=== PATIENT | male | born 1985 | race Two or more races ===

== ENCOUNTER → 2024-11-08 | Outpatient (CLI) | payer MEDICAID, SELFPAY ==
--- NOTE | 2024-11-08 10:45 | XR_ITS ---
Exam: MRI knee without contrast, left complete Date and time of exam: November 08, 2024 1055 hrs. Indications: Knee pain and swelling instability beginning 8 months ago Technique: Multiple axial, coronal, and sagittal sections on the knee have been obtained. T2-Weighted sagittal, fat-suppressed images, TR 3,500, TE 62, T2 weighted coronal fat-saturated images, TR 3,500, TE 62 Proton density sagittal sections, TR 1800, TE 31. T-1 weighted coronal images, TR 524, TE 13.0 Findings: Medial meniscus anterior horn intact. Medial meniscus, body large horizontal linear tear. Posterior horn medial meniscus large horizontal linear tear communicating inferior articular surface. Lateral meniscus anterior horn horizontal linear tear Lateral meniscus, body is intact Posterior horn lateral meniscus is intact Anterior cruciate ligament mild sprain Posterior cruciate ligament appears intact. Knee effusion is moderate. Quadriceps and patellar tendons appear intact. There is no evidence of tendinosis. Inflammatory change or fracture of Hoffa's fat pad is not seen. Medial patellar facet demonstrates moderate thinning. Lateral patellar facet cartilage demonstrates mild thinning. Trochlear cartilage demonstrates moderate thinning. Marrow signal adequate. Medial collateral ligament appears intact. No meniscocapsular separation is seen. Illiotibial band and fibular collateral ligament are intact. Biceps femoris tendons appear intact. Medial femoral condylar articular cartilage demonstrates mild thinning. Lateral femoral condylar articular cartilage demonstratesmild thinning. Tibial plateau cartilage demonstrates mild thinning. Impression: Medial lateral meniscus tears as above Mild sprain anterior cruciate ligament
== END | disposition home or self-care (01) ==
LOC: SMRI 10:25
PROVIDERS: Referring Provider Family Medicine; Visit Provider Family Medicine
DX: S83.512D Sprain of anterior cruciate ligament of left knee, subsequent encounter (principal); S83.282D Other tear of lateral meniscus, current injury, left knee, subsequent encounter; S83.242D Other tear of medial meniscus, current injury, left knee, subsequent encounter; X58.XXXD Exposure to other specified factors, subsequent encounter; G89.29 Other chronic pain
CPT/HCPCS: 73721

== ENCOUNTER 2025-01-06 19:46 | Emergency (ER) | payer MEDICAID, SELFPAY ==
[2025-01-06 19:46] VITALS: BMI 37.3
[2025-01-06 20:26] VITALS: BP 111/76; PULSE 79; RESP 18; TEMP 36.9; O2SAT 95
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
== END 2025-01-06 20:46 | disposition home or self-care (01) ==
PROVIDERS: Emergency Provider Emergency Medicine
DX: S30.0XXA Contusion of lower back and pelvis, initial encounter (principal); V43.52XA Car driver injured in collision with other type car in traffic accident, initial encounter
CPT/HCPCS: 99281

== ENCOUNTER → 2025-07-10 | Outpatient (CLI) | payer MEDICAID, SELFPAY ==
--- NOTE | 2025-07-10 10:00 | XR_ITS ---
Examination: CT soft tissue neck, with intravenous contrast. 2-D coronal reconstructions. 2-D sagittal reconstructions. Date and time of exam : 07/10/2025 at 10:12 a.m. CTDI: vol (mGy): 19.3 DLP: (mGycm): 543 Technique: 1.25 mm axial sections of the neck of the obtained. Coronal and sagittal reconstructions have been obtained. Intravenous contrast administered 50 mL of Isovue-370. Low dose protocols were performed. One or more of the following dose reduction techniques were used; automated exposure control, adjustment of the mA and/or KV according to patient size, use of iterative reconstruction technique. Findings: Normal-appearing bilateral subcentimeter short axis lymph nodes are present. Diffuse homogeneous tonsillar hypertrophy of Waldeyer's ring is present, with obstruction of the posterior nasopharynx, and narrowing of the oropharynx. The remainder of the airway is widely patent. No evidence for peritonsillar or retropharyngeal abscess. The epiglottis is normal in appearance. The larynx is unremarkable. The thyroid and major salivary glands are unremarkable. No recent fractures or suspicion osseous lesions are detected. The imaged intracranial structures are unremarkable. Minimal mucosal hypertrophy identified in the right maxillary sinus. The imaged portions of the lungs show no significant findings. No overt thymic hyperplasia. IMPRESSION: Diffuse homogeneous tonsillar hypertrophy of Waldeyer's ring is present, with obstruction of the posterior nasopharynx, and narrowing of the oropharynx. Differential diagnosis includes reactive lymphoid hyperplasia, follicular hyperplasia disorders, or other potential lymphoproliferative disease including lymphoma although believed to be less likely at this time. No evidence for peritonsillar or retropharyngeal abscess. No evidence for cervical lymphadenopathy or other neck mass.
== END | disposition home or self-care (01) ==
PROVIDERS: PCP Family Medicine; Referring Provider Family Medicine; Visit Provider Family Medicine
DX: J35.1 Hypertrophy of tonsils (principal); J98.8 Other specified respiratory disorders
CPT/HCPCS: 70491; A4649; Q9967

== ENCOUNTER → 2025-08-11 | Outpatient (CLI) | payer MEDICAID, SELFPAY ==
--- NOTE | 2025-08-11 09:07 | XR_ITS ---
EXAMINATION: Bilateral AP knees standing single view Left and right knee. Lateral total 4 views TECHNIQUE: Bilateral AP knees standing single view Standing left knee PA lateral, standing right knee PA lateral total 4 views Date and time: August 11, 2025, 0931 hours INDICATIONS: Bilateral knee pain several years left knee meniscus repair 8 months ago FINDINGS: Bilateral mild to moderate narrowing medial joint spaces Bilateral mild osteoarthritis patellofemoral joints No fractures IMPRESSION: Bilateral mild to moderate narrowing medial joint spaces Bilateral mild osteoarthritis patellofemoral joints
== END | disposition home or self-care (01) ==
PROVIDERS: PCP Orthopaedic Surgery; Referring Provider Orthopaedic Surgery; Visit Provider Orthopaedic Surgery
DX: M17.0 Bilateral primary osteoarthritis of knee (principal); M25.861 Other specified joint disorders, right knee; M25.862 Other specified joint disorders, left knee
CPT/HCPCS: 73562